=== PATIENT | female | born 1970 | race African-American/Black ===

== ENCOUNTER 2017-09-26 19:28 | Emergency (ER) | payer SELFPAY ==
[~2017-09-26] VITALS: Ht 167.6 cm; Wt 84.0 kg
[2017-09-26] MEDS ORDERED: ONDANSETRON 4MG ODT PO ONE (23:00)
[2017-09-26 23:36] LABS: CLARITY URINE CLOUDY (CLEAR); COLOR URINE YELLOW (YELLOW); KETONES URINE NEGATIVE (NEGATIVE); LEUKOCYTE ESTERASE URINE 2+ (NEGATIVE); NITRITE URINE POSITIVE (NEGATIVE); OCCULT BLOOD URINE NEGATIVE (NEGATIVE); PH URINE 6.5 (4.5-8.0); PROTEIN URINE TRACE (NEGATIVE); SPECIFIC GRAVITY URINE 1.024 (1.005-1.030); UROBILINOGEN URINE 0.2 E.U./dL (0.2-1.0)
[2017-09-26 23:59] LABS: BASOPHILS % 1.3 % (0.0-2.0); EOSINOPHILS % 2.8 % (0.0-5.0); HEMATOCRIT. 29.8 % (36.0-48.0); LYMPHOCYTES % 40.7 % (20.0-50.0); MEAN PLATELET VOLUME 7.9 fl (7.4-10.4); MONOCYTES % 13.3 % (2.0-8.0); NEUTROPHILS % 41.9 % (40.0-76.0); PLATELET 554 x1000/uL (130-400); RED BLOOD CELL COUNT 4.51 mill/uL (4.2-5.4); RED CELL DISTRIBUTION WIDTH 18.5 % (11.6-14.6)
[2017-09-27 00:06] LABS: PARTIAL THROMBOPLASTIN TIME 29.6 sec (23.4-31.0); PROTHROMBIN TIME 10.7 sec (9.4-11.6)
[2017-09-27 00:13] LABS: CHLORIDE 105 mEq/L (98-107)
[2017-09-27] MEDS ORDERED: SODIUM CHLORIDE 0.9% 1,000 ML IV ONE (00:30)
[2017-09-27] MEDS ORDERED: CEFTRIAXONE 1 G PREMIX 50 ML IV SCH (00:49)
[2017-09-27 02:36] VITALS: BP 110/68
[2017-09-27 06:14] LABS: PLATELET ESTIMATE INCREASED
== END 2017-09-27 02:49 | disposition home or self-care (01) ==
LOC: ER 19:28 → CANBEDREQ 09-27 07:33
DX: N39.0 Urinary tract infection, site not specified (principal); R53.1 Weakness; R51 Headache; R42 Dizziness and giddiness
CPT/HCPCS: 36415; 71045; 80053; 81003; 81025; 83690; 83735; 83880; 84484; 85025; 85610; 85730; 87077; 87086; 87186; 93005; 96365; 99285; J0696; J7030; Q0162; Z7610

== ENCOUNTER 2017-10-19 17:40 | Emergency (ER) | payer SELFPAY ==
[~2017-10-19] VITALS: Ht 167.6 cm; Wt 82.0 kg
[2017-10-19] MEDS ORDERED: SODIUM CHLORIDE 0.9% 1,000 ML IV ONE (19:06)
[2017-10-19 19:33] LABS: EOSINOPHILS % 2.8 % (0.0-5.0); HEMATOCRIT. 30.6 % (36.0-48.0); HEMOGLOBIN. 9.4 g/dL (12.0-16.0); LYMPHOCYTES % 35.4 % (20.0-50.0); MEAN CORPUSCULAR HEMOGLOBIN 20.3 pg (28.0-32.0); MEAN CORPUSCULAR VOLUME 65.8 fL (81.0-99.0); MEAN PLATELET VOLUME 7.9 fl (7.4-10.4); MONOCYTES % 11.8 % (2.0-8.0); PLATELET 513 x1000/uL (130-400); RED BLOOD CELL COUNT 4.65 mill/uL (4.2-5.4); RED CELL DISTRIBUTION WIDTH 18.2 % (11.6-14.6)
[2017-10-19 19:41] LABS: CLARITY URINE CLOUDY (CLEAR); COLOR URINE YELLOW (YELLOW); KETONES URINE TRACE (NEGATIVE); LEUKOCYTE ESTERASE URINE 1+ (NEGATIVE); NITRITE URINE NEGATIVE (NEGATIVE); OCCULT BLOOD URINE NEGATIVE (NEGATIVE); PROTEIN URINE NEGATIVE (NEGATIVE); SPECIFIC GRAVITY URINE 1.024 (1.005-1.030)
[2017-10-19 19:44] LABS: CHLORIDE 106 mEq/L (98-107)
[2017-10-19 21:30] VITALS: BP 103/64
[2017-10-19 21:40] LABS: PLATELET ESTIMATE INCREASED
== END 2017-10-19 21:30 | disposition home or self-care (01) ==
LOC: ER 19:26
DX: N39.0 Urinary tract infection, site not specified (principal); D50.9 Iron deficiency anemia, unspecified; F42.4 Excoriation (skin-picking) disorder; Z98.870 Personal history of in utero procedure during pregnancy
CPT/HCPCS: 36415; 80053; 81003; 81025; 85025; 93005; 96360; 99285; J7030

== ENCOUNTER 2018-02-16 16:20 | Emergency (ER) | payer SELFPAY ==
[~2018-02-16] VITALS: Ht 167.6 cm; Wt 88.7 kg
[2018-02-16 21:48] LABS: BASOPHILS % 0.9 % (0.0-2.0); EOSINOPHILS % 4.5 % (0.0-5.0); HEMOGLOBIN. 10.3 g/dL (12.0-16.0); LYMPHOCYTES % 36.7 % (20.0-50.0); MEAN CORPUSCULAR HEMOGLOBIN 20.3 pg (28.0-32.0); MEAN CORPUSCULAR VOLUME 66.6 fL (81.0-99.0); MEAN PLATELET VOLUME 7.7 fl (7.4-10.4); MONOCYTES % 14.2 % (2.0-8.0); NEUTROPHILS % 43.7 % (40.0-76.0); PLATELET 511 x1000/uL (130-400); RED CELL DISTRIBUTION WIDTH 19.8 % (11.6-14.6)
[2018-02-16 21:55] LABS: CHLORIDE 106 mEq/L (98-107)
[2018-02-16 21:59] LABS: ETHANOL BLOOD < 10 mg/dL
[2018-02-16 22:09] LABS: CLARITY URINE CLOUDY (CLEAR); COLOR URINE YELLOW (YELLOW); KETONES URINE TRACE (NEGATIVE); LEUKOCYTE ESTERASE URINE 2+ (NEGATIVE); NITRITE URINE POSITIVE (NEGATIVE); OCCULT BLOOD URINE NEGATIVE (NEGATIVE); PROTEIN URINE NEGATIVE (NEGATIVE); SPECIFIC GRAVITY URINE 1.029 (1.005-1.030)
[2018-02-16 22:33] LABS: *AMPHETAMINES SCREEN URINE NEGATIVE (NEGATIVE); *BARBITURATES SCREEN URINE NEGATIVE (NEGATIVE)
[2018-02-16 22:34] LABS: *BENZODIAZEPINES SCREEN URINE NEGATIVE (NEGATIVE); *COCAINE SCREEN URINE NEGATIVE (NEGATIVE); METHADONE URINE SCREEN NEGATIVE (NEGATIVE); OPIATES URINE SCREEN NEGATIVE (NEGATIVE); PHENCYCLIDINE URINE SCREEN NEGATIVE (NEGATIVE)
[2018-02-16 22:39] LABS: CANNABINOID URINE SCREEN PRESUMTIVE POSITIVE (NEGATIVE)
[2018-02-16 23:09] LABS: PLATELET ESTIMATE INCREASED
[2018-02-16 23:29] VITALS: BP 117/77
== END 2018-02-16 23:30 | disposition home or self-care (01) ==
LOC: ER 16:20
DX: N39.0 Urinary tract infection, site not specified (principal); D64.9 Anemia, unspecified; F12.10 Cannabis abuse, uncomplicated
CPT/HCPCS: 36415; 80053; 80305; 81003; 81025; 85025; 87077; 87086; 87186; 93005; 99284; G0482

== ENCOUNTER 2018-05-31 10:13 | Emergency (ER) | payer SELFPAY ==
[~2018-05-31] VITALS: Ht 167.6 cm; Wt 75.0 kg
[2018-05-31 13:29] LABS: CLARITY URINE TURBID (CLEAR); COLOR URINE YELLOW (YELLOW); KETONES URINE NEGATIVE (NEGATIVE); LEUKOCYTE ESTERASE URINE 2+ (NEGATIVE); NITRITE URINE POSITIVE (NEGATIVE); OCCULT BLOOD URINE NEGATIVE (NEGATIVE); PROTEIN URINE NEGATIVE (NEGATIVE); SPECIFIC GRAVITY URINE 1.024 (1.005-1.030)
[2018-05-31] MEDS ORDERED: FLUCONAZOLE 100MG TABLET PO ONE (14:15)
[2018-05-31 14:29] VITALS: BP 111/70
[2018-05-31] MEDS ORDERED: FLUCONAZOLE 150MG TABLET PO NR (14:30)
== END 2018-05-31 14:31 | disposition home or self-care (01) ==
LOC: ER 10:13
DX: N39.0 Urinary tract infection, site not specified (principal); B37.3 Candidiasis of vulva and vagina; F12.10 Cannabis abuse, uncomplicated; Z98.890 Other specified postprocedural states
CPT/HCPCS: 81025; 87077; 87106; 87186; 99283

== ENCOUNTER 2018-10-10 12:24 | Emergency (ER) | payer MEDICAID, OTHER ==
[~2018-10-10] VITALS: Ht 167.6 cm; Wt 92.0 kg
[2018-10-10] MEDS ORDERED: SODIUM CHLORIDE 0.9% 1,000 ML IV ONE (13:23)
[2018-10-10] MEDS ORDERED: KETOROLAC 30MG/ML VIAL IV STA (13:23)
[2018-10-10 14:49] LABS: BASOPHILS % 0.8 % (0.0-2.0); EOSINOPHILS % 1.4 % (0.0-5.0); HEMATOCRIT. 34.6 % (36.0-48.0); LYMPHOCYTES % 19.8 % (20.0-50.0); MEAN CORPUSCULAR VOLUME 72.1 fL (81.0-99.0); MEAN PLATELET VOLUME 7.7 fl (7.4-10.4); MONOCYTES % 8.1 % (2.0-8.0); NEUTROPHILS % 69.9 % (40.0-76.0); PLATELET 459 x1000/uL (130-400); RED BLOOD CELL COUNT 4.79 mill/uL (4.2-5.4)
[2018-10-10 14:58] LABS: CHLORIDE 106 mEq/L (98-107)
[2018-10-10 14:59] LABS: HCG SCREEN NEGATIVE
[2018-10-10 15:15] LABS: CLARITY URINE TURBID (CLEAR); COLOR URINE YELLOW (YELLOW); KETONES URINE NEGATIVE (NEGATIVE); LEUKOCYTE ESTERASE URINE 3+ (NEGATIVE); NITRITE URINE NEGATIVE (NEGATIVE); OCCULT BLOOD URINE 2+ (NEGATIVE); PROTEIN URINE 2+ (NEGATIVE); SPECIFIC GRAVITY URINE 1.024 (1.005-1.030)
[2018-10-10] MEDS ORDERED: CEFTRIAXONE 1 G PREMIX 50 ML IV ONE (15:30)
[2018-10-10 16:58] VITALS: BP 114/65
== END 2018-10-10 17:03 | disposition home or self-care (01) ==
LOC: ER 12:24
DX: N20.0 Calculus of kidney (principal); K80.20 Calculus of gallbladder without cholecystitis without obstruction; N39.0 Urinary tract infection, site not specified; D21.9 Benign neoplasm of connective and other soft tissue, unspecified; F12.10 Cannabis abuse, uncomplicated; Z98.890 Other specified postprocedural states
CPT/HCPCS: 36415; 74176; 80053; 81003; 83690; 84703; 85025; 87077; 87086; 87186; 96361; 96374; 99284; J0696; J1885; J7030

== ENCOUNTER 2019-07-11 18:15 | Emergency (ER) | payer MEDICAID, OTHER ==
[~2019-07-11] VITALS: Ht 165.1 cm; Wt 50.0 kg
[2019-07-11] MEDS ORDERED: SODIUM CHLORIDE 0.9% 1,000 ML IV ONE (18:52)
[2019-07-11 19:20] LABS: BASOPHILS % 1.2 % (0.0-2.0); EOSINOPHILS % 5.1 % (0.0-5.0); HEMATOCRIT. 34.3 % (36.0-48.0); HEMOGLOBIN. 11.2 g/dL (12.0-16.0); LYMPHOCYTES % 35.3 % (20.0-50.0); MEAN CORPUSCULAR HEMOGLOBIN 25.9 pg (28.0-32.0); MEAN CORPUSCULAR VOLUME 79.5 fL (81.0-99.0); MONOCYTES % 10.1 % (2.0-8.0); NEUTROPHILS % 48.3 % (40.0-76.0); PLATELET 366 x1000/uL (130-400); RED BLOOD CELL COUNT 4.32 mill/uL (4.2-5.4)
[2019-07-11 19:23] LABS: CHLORIDE 112 mEq/L (98-107)
[2019-07-11 19:24] LABS: INR 0.9
[2019-07-11] MEDS ORDERED: HYDROCODONE/ACETAMINOPHEN 5/325MG TABLET PO ONE (22:15)
[2019-07-11 23:30] VITALS: BP 106/66
== END 2019-07-12 00:10 | disposition home or self-care (01) ==
LOC: ER 18:15
DX: D25.9 Leiomyoma of uterus, unspecified (principal); N92.0 Excessive and frequent menstruation with regular cycle; I95.9 Hypotension, unspecified; F12.10 Cannabis abuse, uncomplicated
CPT/HCPCS: 36415; 71045; 76830; 76856; 80053; 84484; 85025; 85610; 86850; 86900; 86901; 93005; 96360; 96361; 99285; J7030

== ENCOUNTER 2024-01-09 11:59 | Emergency (ER) | payer OTHER ==
[~2024-01-09] VITALS: Ht 167.6 cm; Wt 82.0 kg
[2024-01-09 12:10] VITALS: BP 107/75; O2SAT 98
[2024-01-09] MEDS ORDERED: IBUP-2029 MT (13:58)
[2024-01-09 15:31] VITALS: PULSE 71; RESP 16; TEMP 36.78072; O2SAT 99
== END 2024-01-09 15:31 | disposition home or self-care (01) ==
LOC: ER 11:59
DX: M25.532 Pain in left wrist (principal); G56.00 Carpal tunnel syndrome, unspecified upper limb; F12.10 Cannabis abuse, uncomplicated
CPT/HCPCS: 73110; 99283